=== PATIENT | male | born 1995 | race Caucasian/White ===

== ENCOUNTER 2022-10-16 10:57 | Emergency (ER) | payer BC ==
[~2022-10-16] VITALS: Ht 154.9 cm; Wt 59.0 kg
[2022-10-16] MEDS ORDERED: SEROQUEL25 MG PO (11:12)
[2022-10-16] MEDS ORDERED: QUETIAPINE FUM400 M1 (11:12)
[2022-10-16] MEDS ORDERED: LITHOBID300 M1 (11:13)
[2022-10-16] MEDS ORDERED: LITHOBID300 M1 PO (11:13)
== END 2022-10-16 12:24 | disposition home or self-care (01) ==
LOC: ER 10:57
DX: R60.0 Localized edema (principal); T78.49XA Other allergy, initial encounter; T56.891A Toxic effect of other metals, accidental (unintentional), initial encounter; Y92.9 Unspecified place or not applicable; X58.XXXA Exposure to other specified factors, initial encounter